=== PATIENT | male | born 1990 | race African-American/Black ===

== ENCOUNTER 2016-03-11 17:05 | Emergency (ER) | payer OTHER ==
[~2016-03-11] VITALS: Ht 167.6 cm; Wt 94.6 kg
[2016-03-11 17:09] VITALS: TEMP 37; Ht 167.6 cm; Wt 94.6 kg
[2016-03-11 17:24] VITALS: O2SAT 95
[2016-03-11 17:59] LABS: BASO % 0.3 %; BASO ABS # 0.02 K/uL (0-0.2); COMPLETE YES; EOS % 0.6 %; HEMATOCRIT 48.8 % (42-52); IG% 0.1 %; LYMPH % 29.5 %; LYMPH ABS # 1.99 K/uL (1.2-3.4); MEAN CELL VOLUME 85.9 fL (80-100); MEAN CORPUSCULAR HEMOGLOBIN 30.6 pg (25-34); MEAN CORPUSCULAR HGB CONC 35.7 g/dl (32-36); MEAN PLATELET VOLUME 10.5 fL (7.4-10.4); MONO % 6.8 %; NEUT % 62.7 %; PLATELET COUNT 206 K/uL (130-400); RED BLOOD COUNT 5.68 M/uL (4.7-6.1); WHITE BLOOD COUNT 6.74 K/uL (4.8-10.8)
[2016-03-11 18:09] LABS: BLOOD UREA NITROGEN 13 mg/dl (7-18); BUN/CREATININE RATIO 11.4 (10-20); CALCIUM 9.3 mg/dl (8.5-10.1); CARBON DIOXIDE 29 mmol/L (21-32); CHLORIDE 104 mmol/L (98-107); GLUCOSE 92 mg/dl (70-99); POTASSIUM 3.7 mmol/L (3.5-5.1); SODIUM 140 mmol/L (136-145)
--- NOTE | 2016-03-11 18:22 | DIAGNOSTIC IMAGING REPORT ---
CHEST ONE VIEW PORTABLE CLINICAL HISTORY: Chest pain. COMPARISON STUDY: No previous studies for comparison. FINDINGS: Lung volumes are normal. No pneumothorax or pleural effusion is present. Pulmonary vascularity is normal. Cardiac size is at the upper limits of normal. There is no evidence of pulmonary edema. IMPRESSION: 1. No acute cardiopulmonary findings. 2. Borderline cardiomegaly. Electronically signed by: Scar Stallings M.D. 03/11/2016 6:20 PM Dictated Date/Time: 03/11/2016 6:20 PM
[2016-03-11 18:27] LABS: CKMB/CK RATIO 0.3 (0-3.0)
[2016-03-11] MEDS ORDERED: ASPI-391 PO (18:40)
[2016-03-11] MEDS ORDERED: GI COCKTAIL PO STA (18:54)
[2016-03-11] MEDS ORDERED: LIDOCAINE HCL 2% VISC SOLN 20 ML UDC ONE (19:06)
[2016-03-11] MEDS ORDERED: ALUMINUM/MAGNESIUM SUSP 30 ML UDC ONE (19:06)
[2016-03-11 19:58] VITALS: BP 118/79; PULSE 66; O2SAT 97
--- NOTE | 2016-03-11 21:35 | EMERGENCY ROOM VISIT NOTE ---
History Report prepared by Julian: Augusto Keenan Under the Supervision of: Dr. Fam Gordon D.O. First contact with patient: 17:11 Chief Complaint: CHEST PAIN Stated Complaint: CHEST PAIN X3 DAYS Nursing Triage Summary: Pt reports 5/10 mid sternal chest pain that began yesterday. Reports it hurts with inspiration and expiration. Dry NPC. Pain does not radiate anywhere. Reports N/V/D yesterday. History of Present Illness The patient is a 26 year old male who presents to the Emergency Room with complaints of waxing and waning chest pain beginning 2 days ago. He rates his pain a 5/10 in severity, and notes that eating worsens his symptoms while standing up and applying pressure to his chest relieves his chest pain. He notes the pain becomes sharp with breathing, and he also has shortness of breath with his pain. He denies any radiation of his pain to his back. The patient notes having high cholesterol along with having his gallbladder and appendix, but denies any history of diabetes, or aorta issues. He has not taken any recent trips, hemoptysis, history cancer, swelling of the legs, on previous PEs. The patient denies having any abdominal pain. He denies drug or alcohol use. He is concerned about a possible blood clot. No history of hypertension. Source of History: patient Onset: 2 days ago Position: chest Symptom Intensity: 5/10 in severity Quality: sharp Timing: waxes/wanes Modifying Factors (Worsening): eating Modifying Factors (Relieving): movement (standing), other (applying pressure to the chest) Associated Symptoms: + SOB, No abdominal pain Note: The patient denies having any swelling in his calves. Review of Systems See HPI for pertinent positives & negatives. A total of 10 systems reviewed and were otherwise negative. Past Medical & Surgical Medical Problems: (1) No Known Active Medical Problems Family History No pertinent family history stated. Social History Smoking Status: Current Every Day Smoker Current/Historical Medications Scheduled Lmzrvjd-Efyrkpjqwlngz-Hawwhlga (Excedrin Extra Strength), 2 TABS PO PRN UD Allergies Coded Allergies: No Known Allergies (Unverified , 03/11/16) Physical Exam Vital Signs Date Time Temp Pulse Resp B/P Pulse Ox O2 Delivery O2 Flow Rate FiO2 03/11/16 19:58 66 16 118/79 97 03/11/16 18:17 57 16 117/70 97 Room Air 1/24/17 17:39 71 03/11/16 17:24 95 Room Air 03/11/16 17:24 95 Room Air 03/11/16 17:09 37.0 78 20 144/86 98 Room Air Pain Rating (0-10): 0 Physical Exam GENERAL: Sitting in bed, alert, well appearing, well nourished, no distress, non -toxic EYE EXAM: normal conjunctiva OROPHARYNX: no exudate, no erythema, lips, buccal mucosa, and tongue normal and mucous membranes are moist NECK: supple, no nuchal rigidity, no adenopathy, non-tender LUNGS: Clear to auscultation. Normal chest wall mechanics HEART: no murmurs, S1 normal and S2 normal ABDOMEN: abdomen soft, non-tender, normo-active bowel sounds, no masses, no rebound or guarding. BACK: Back is symmetrical on inspection and there is no deformity, no midline tenderness, no CVA tenderness. SKIN: no rashes and no bruising. Multiple tattoos present. UPPER EXTREMITIES: upper extremities are grossly normal. LOWER EXTREMITIES: No pitting edema. Calves are equal bilaterally. NEURO EXAM: Normal sensorium, cranial nerves II-XII grossly intact, normal speech, no gross weakness of arms, no gross weakness of legs. No drift. Gross sensation intact. Medical Decision & Procedures ER Provider Diagnostic Interpretation: Xray results per the radiologist and my interpretation. Other results have been interpreted by the radiologist and reviewed by me. CHEST ONE VIEW PORTABLE FINDINGS: Lung volumes are normal. No pneumothorax or pleural effusion is present. Pulmonary vascularity is normal. Cardiac size is at the upper limits of normal. There is no evidence of pulmonary edema. IMPRESSION: 1. No acute cardiopulmonary findings. 2. Borderline cardiomegaly. Electronically signed by: Scar Stallings M.D. 03/11/2016 6:20 PM Dictated Date/Time: 03/11/2016 6:20 PM Laboratory Results 03/11/16 17:22 Red Blood Count 5.68, Mean Corpuscular Volume 85.9, Mean Corpuscular Hemoglobin 30.6, Mean Corpuscular Hemoglobin Concent 35.7, Mean Platelet Volume 10.5, Neutrophils (%) (Auto) 62.7, Lymphocytes (%) (Auto) 29.5, Monocytes (%) (Auto) 6.8, Eosinophils (%) (Auto) 0.6, Basophils (%) (Auto) 0.3, Neutrophils # (Auto) 4.22, Lymphocytes # (Auto) 1.99, Monocytes # (Auto) 0.46, Eosinophils # (Auto) 0.04, Basophils # (Auto) 0.02 03/11/16 17:22 Test 03/11/16 17:22 03/11/16 18:30 White Blood Count 6.74 K/uL (4.8-10.8) Red Blood Count 5.68 M/uL (4.7-6.1) Hemoglobin 17.4 g/dL (14.0-18.0) Hematocrit 48.8 % (42-52) Mean Corpuscular Volume 85.9 fL (80-100) Mean Corpuscular Hemoglobin 30.6 pg (25-34) Mean Corpuscular Hemoglobin Concent 35.7 g/dl (32-36) Platelet Count 206 K/uL (130-400) Mean Platelet Volume 10.5 fL (7.4-10.4) Neutrophils (%) (Auto) 62.7 % Lymphocytes (%) (Auto) 29.5 % Monocytes (%) (Auto) 6.8 % Eosinophils (%) (Auto) 0.6 % Basophils (%) (Auto) 0.3 % Neutrophils # (Auto) 4.22 K/uL (1.4-6.5) Lymphocytes # (Auto) 1.99 K/uL (1.2-3.4) Monocytes # (Auto) 0.46 K/uL (0.11-0.59) Eosinophils # (Auto) 0.04 K/uL (0-0.5) Basophils # (Auto) 0.02 K/uL (0-0.2) RDW Standard Deviation 40.3 fL (36.4-46.3) RDW Coefficient of Variation 12.8 % (11.5-14.5) Immature Granulocyte % (Auto) 0.1 % Immature Granulocyte # (Auto) 0.01 K/uL (0.00-0.02) Anion Gap 7.0 mmol/L (3-11) Est Creatinine Clear Calc Drug Dose 110.5 ml/min Estimated GFR () 107.6 Estimated GFR (Non- 92.8 BUN/Creatinine Ratio 11.4 (10-20) Calcium Level 9.3 mg/dl (8.5-10.1) Total Creatine Kinase 172 U/L (39-308) Creatine Kinase MB 0.6 ng/ml (0.5-3.6) Creatine Kinase MB Ratio 0.3 (0-3.0) Troponin I < 0.015 ng/ml (0-0.045) Chemistry Specimen Hemolysis Bedside D-Dimer 67 ng/mlFEU (0-450) Laboratory results per my review. Medications Administered Medications (Trade) Dose Ordered Sig/Ilgia Route Start Time Stop Time Status Last Admin Dose Admin Miscellaneous Medication (Gi Cocktail) 30 ml NOW STAT PO 03/11/16 18:54 03/11/16 18:55 DC 03/11/16 18:54 30 ML Lidocaine HCl (Viscous Lidocaine 2% Soln) 20 ml STK-MED ONCE .ROUTE 03/11/16 19:06 03/11/16 19:08 DC 03/11/16 19:06 20 ML Al Hydroxide/Mg Hydroxide (Maalox Susp) 30 ml STK-MED ONCE .ROUTE 03/11/16 19:06 03/11/16 19:08 DC 03/11/16 19:06 30 ML ECG Indication: chest pain Rate (beats per minute): 61 Rhythm: sinus rhythm Findings: no ectopy, other (normal axis) ED Course ED COURSE: Vital signs were reviewed and showed normal. The patients medical record was reviewed The above diagnostic studies were performed and reviewed. ED treatments and interventions as stated above. 1738: The patient was evaluated in room C9. A complete history and physical examination was performed. 1853: Ordered GI Cocktail 30 ml PO. 1958: I updated the patient. 1999: Upon reevaluation, the patient is hemodynamically stable.I discussed my findings with the patient and he understands and agrees with the treatment plan. Based on the patients age, coexisting illnesses, exam and lab findings the decision to treat as an outpatient was made. The patient remained stable while under my care. The patient appeared well at the time of discharge. Medical Decision Differential diagnoses includes but is not limited to acute coronary syndrome, myocardial infarction, pericarditis, pulmonary embolus, aortic dissection, pneumonia, pneumothorax, musculoskeletal, shingles, esophageal. Patient is a 26-year-old male who presents the ER for chest pain which has been present for the past 3 days. He notes it is improved with sitting up straight and pushing on his chest. Patient has no exertional components. Minimal cardiac risk factors especially with his age. Also is a low risk for PE as well and with a negative d-dimer this was not pursued any further. This also makes him very low risk for dissection and consequently CTA was Performed with a negative chest x-ray and d-dimer. EKG was negative. Patient's pain did improve with a GI cocktail. He was discharged following a negative troponin to follow-up with his PCP. Discussed with Pt concerning signs and symptoms to watch out for. Pt was instructed to follow up with their PCP and discussed with the patient their option to return to the ED at anytime for persistent or worsening symptoms. The appropriate anticipatory guidance and out-patient management, including indications for return to the emergency department, were explained at length to the patient and understood. Impression Primary Impression: Chest pain Scribe Attestation The scribe's documentation has been prepared under my direction and personally reviewed by me in its entirety. I confirm that the note above accurately reflects all work, treatment, procedures, and medical decision making performed by me. Departure Information Dispostion Home / Self-Care Forms HOME CARE DOCUMENTATION FORM, IMPORTANT VISIT INFORMATION Patient Instructions Chest Pain - [facility], [facility] Additional Instructions Please follow up with your primary care doctor with in the next 24 hours. Any worsening of your symptoms, please return to the ED immediately. This includes any fevers greater than 100.4, worsening pain, passing out, worsening shortness of breath, persistent nausea vomiting, or any other concerning signs or symptoms of your standpoint. Please take Tylenol as needed for pain. Problem Qualifiers Primary Impression: Chest pain Chest pain type: precordial pain Qualified Codes: R07.2 - Precordial pain
== END 2016-03-11 19:59 | disposition home or self-care (01) ==
LOC: C.EDB 17:07 → C.EDC 19:59
DX: R07.9 Chest pain, unspecified (principal); E78.00 Pure hypercholesterolemia, unspecified; F17.200 Nicotine dependence, unspecified, uncomplicated